=== PATIENT | female | born 1995 | race Caucasian/White ===

== ENCOUNTER 2023-11-30 18:36 | Day surgery (SDC) | payer BC, SELFPAY ==
[2023-11-30] VITALS (14 sets, daily range): BP systolic 99–122; BP diastolic 59–79; BMI 26.9
[2023-11-30 12:56] LABS: % Basophils 0.6 % (0-2); % Eosinophils 1.7 % (0-6); % Immature Granulocytes 0.2 % (0-0.5); % Lymphocytes 17.5 % (20.5-51.1); % Monocytes 6.6 % (1.7-9.3); % Neutrophils 73.4 % (42.2-75.2); Absolute Basophils 0.1 10^3/uL (0-0.2); Absolute Eosinophils 0.1 10^3/uL (0-0.7); Absolute Lymphocytes 1.5 10^3/uL (1.2-3.4); Absolute Monocytes 0.6 10^3/uL (0.1-0.6); Absolute Neutrophils 6.2 10^3/uL (1.4-6.5); Hemoglobin 12.7 g/dL (12.0-16.0); Mean Corp Hgb Conc. 34.3 g/dL (33.0-37.0); Mean Corpuscular Hgb 29.1 pg (27.0-31.0); Mean Corpuscular Volume 84.9 fL (81.0-99.0); Mean Platelet Volume 9.7 fL (7.4-10.4); Nucleated Red Blood Cells % 0 %; Platelet Count 283 10^3/uL (130-400); Red Blood Cell Count 4.36 10^6/uL (4.20-5.40); Red Cell Dist. Width 13.1 % (11.5-14.5); White Blood Cell Count 8.5 10^3/uL (4.8-10.8)
[2023-11-30 13:02] LABS: HCG, Serum Qualitative Screen Negative
[2023-11-30 13:10] LABS: ALT (SGPT) 15 U/L (0-35); AST (SGOT) 22 U/L (14-36); Albumin 4.7 g/dl (3.5-5.0); Alkaline Phosphatase 58 U/L (38-126); Blood Urea Nitrogen 15 mg/dl (7-17); Calcium 9.9 mg/dl (8.4-10.2); Carbon Dioxide 26 mmol/L (22-30); Chloride 104 mmol/L (98-107); Glucose 100 mg/dl (70-99); Lipase 96 U/L (23-300); Potassium 4.1 mmol/L (3.5-5.1); Sodium 137 mmol/L (135-145); Total Bilirubin 0.8 mg/dl (0.2-1.3); eGFR > 60.00
[2023-11-30 14:29] LABS: Urine Albumin Negative (Neg - Trace); Urine Bilirubin Negative (Negative); Urine Character Clear (Clear); Urine Color Yellow; Urine Glucose Negative (Negative); Urine Ketone Negative (Negative); Urine Leukocyte Negative (Negative); Urine Nitrite Negative (Negative); Urine Occult Blood 2+ (Negative); Urine Specific Gravity 1.015 (<1.030); Urine Urobilinogen Negative (Neg - 1+)
[2023-11-30] MEDS: OMNIPAQUE 50 ML PO (14:32)
--- NOTE | 2023-11-30 14:47 | ED.GENMED ---
History of Present Illness
General
Chief Complaint: Abdominal Pain
Source: patient
Exam Limitations: none
Time Seen by Provider: 11/30/23 13:58
Nursing documentation reviewed up to this point in time: agreed with
History of Present Illness
History of Present Illness:
28-year-old female presenting to the emergency department today with concerns of abdominal cramping worsening over the past 3 days specific right lower quadrant abdominal pain worsening since yesterday associated nausea no vomiting no changes in
bowel movements no vaginal symptoms. Denies any history of surgeries to the abdomen
Review of Systems
Review of Systems
Allergies reviewed?: Yes
All Other Systems: ROS reviewed and negative except as documented in HPI and ROS
Phy Exam
Physical Exam
Physical Exam:
GENERAL: Alert , in no apparent distress
EYE: pupils equal and reactive
NECK: Supple, no significant adenopathy.
ENT: o/p clr, mmm.
CARDIAC: Regular rate and rhythm .
LUNGS: Clear breath sounds bilaterally, no acute respiratory distress, no wheezes/rales/rhonchi
ABDOMEN: Pain to right lower quadrant McBurney's point otherwise soft benign abdomen. Nonperitoneal
NEUROLOGICAL: Alert and oriented, no focal neuro deficits
SKIN: Warm and dry, skin intact.
MUSCULOSKELETAL: No edema, well perfused.
PSYCH: Normal and appropriate interaction.
Course
Orders/Labs/Results
Orders:
Orders
11/30/23 12:37
Test Result ONCE
11/30/23 12:39
Complete Blood Count/With Diff Urgent
Comprehensive Metabolic Panel Urgent
HCG, Serum Qualitative Screen Urgent
Comment: Notify provider if positive test present
Lipase Urgent
11/30/23 14:19
Urinalysis Reflex To Culture Urgent
Date Specimen was Collected: 11/30/23
Time Specimen was Collected: 14:15
Urine Microscopic Reflex Cult Urgent
11/30/23 14:22
CT Abd/pel W Iv And Oral Contr Urgent
Comment:
Reason For Exam: rlq pain
0.9% Sodium Chloride 1000 ml [Nss] 1,000 ml IV BOLUS
Iohexol [Omnipaque] See Protocol PO NOW STA
Ketorolac [Toradol] 15 mg IV NOW STA
Ondansetron Injectable [Zofran] 4 mg IV NOW STA
11/30/23 17:36
CefTRIAXone [Rocephin] 1,000 mg IV NOW STA
MetroNIDAZOLE 500 MG/100 ML [Flagyl 500 mg] 100 ml IV NOW
11/30/23 17:56
Dexamethasone Sod Phosphate [Decadron] 20 mg .ROUTE .STK-MED ONE
Fentanyl Citrate/Pf [Sublimaze] 100 mcg .ROUTE .STK-MED ONE
Lidocaine 2% Mpf [Xylocaine Mpf 2%] 100 mg .ROUTE .STK-MED ONE
Midazolam HCl [Versed] 2 mg .ROUTE .STK-MED ONE
Ondansetron Injectable [Zofran] 4 mg .ROUTE .STK-MED ONE
Propofol [Diprivan] 20 ml .ROUTE .STK-MED
11/30/23 18:08
Bupivacaine 0.25%Pf/Epinephrin [Sensorcaine-Epi 0.25%-0.0005] 30 ml .ROUTE .STK-MED ONE
11/30/23 18:12
HYDROmorphone [Dilaudid] 0.25 mg IV PACU-Q5MPRN PRN
HYDROmorphone [Dilaudid] 0.5 mg IV PACU-Q5MPRN PRN
Meperidine [Demerol] 12.5 mg IV PACU-Q5MPRN PRN
Ondansetron Injectable [Zofran] 4 mg IV PACU-ONCEPRN PRN
Prochlorperazine [Compazine] 5 mg IV PACU-ONCEPRN PRN
Notify MD As Directed
Notify physician if: for SDS patients with known or suspected sleep obstructive sleep apnea, monitor in the
PACU.
Notify MD for any apneic/desaturation episodes
O2 Therapy [RESP] Urgent
Titrate/Wean O2 to maintain O2 sat greater than (%): 92
Special Instructions: -Provide supplemental oxygen to achieve O2 sat of 92% or greater.
-After 15 min, may wean O2 and discontinue if patient is able to maintain O2 sat of 92%
or greater during recovery period.
If patient is a discharge home, without oxygen therapy, notify anestheiologist if
unable to maintain O2 SAT of 92% or greater on room air for MD clearance.
11/30/23 18:15
MetroNIDAZOLE 500 MG/100 ML [Flagyl 500 mg] 100 ml .ROUTE .STK-MED
Normosol (Mult Electrolytes) [Normosol-R] 1,000 ml IV PER PROTOCOL
Abnormal Lab Results
11/30/23 11/30/23
12:39 14:19
Lymphocytes % 17.5 L %
(20.5-51.1)
Glucose 100 H mg/dl
(70-99)
Ur Occult Blood Reflex 2+ A
(Negative)
Urine RBC 3-6 A /HPF
(0-2)
Urine Bacteria (Reflex) Few A
(Negative)
11/30/23 12:39
11/30/23 12:39
Vital Signs
Initial and Last Documented VS:
Initial Vital Signs
Temp Pulse Resp BP Pulse Ox
98.1 F 69 16 114/79 98
11/30/23 12:34 11/30/23 12:34 11/30/23 12:34 11/30/23 12:34 11/30/23 12:34
Last Documented Vital Signs
Temp Pulse Resp BP Pulse Ox
98.1 F 60 18 102/73 100
11/30/23 12:34 11/30/23 14:00 11/30/23 14:00 11/30/23 16:00 11/30/23 16:15
MDM/Problems Addressed
MDM/Problems Addressed:
28-year-old female presenting to the emergency department today with concerns of right lower quadrant abdominal pain worsening over the past few days associated nausea with no vomiting. Normal vital signs upon arrival labs unremarkable. Plan for
CT scan for further assessment. Appendicitis seen without complication on the CT scan. Case discussed with general surgery they will take her directly to the OR. Stable throughout ER stay.
*Critical Care Note
Total Time (30-74mins, 75-104mins- exclusive of procedures): Not Applicable
ED Attending Note
-
Portions of this chart may have been created with voice recognition software.� Occasional wrong word or��sound alike� substitutions may have occurred due to the inherent limitations of voice recognition software.
Discharge Plan
Departure
Patient Disposition: Admit
Date of Disposition: 11/30/23
Time of Disposition: 18:33
Admit to: OR
Admit to doctor: Hannah
Presentation/result/management discussed w/ accepting MD/DO: Gen Surgery
Patient with high blood pressure during this ER visit?: No
Condition: Good
Covid-19: Not Applicable
Discharge Problem:
Acute appendicitis
Prescriptions:
No Action
No Current Medications
0
Referrals:
PRIVATE,PHYSICIAN [Family Provider] -
Interventions
Interventions:
*Risk Screen - Suicide Last Done: 11/30/23 14:50
*General Assessment Last Done: 11/30/23 12:34
*Neglect/Abuse Screening Last Done: 11/30/23 14:50
ED- Fall Risk Assessment Last Done: 11/30/23 14:45
*ED COVID-19 Vaccine History Last Done: 11/30/23 12:34
ZV-Fsrros-Hwqenluauy Assessment Last Done: 11/30/23 14:45
Discharge Date and Time
Print Language: BRAZILIAN
[2023-11-30 14:49] LABS: Urine Mucus Few
[2023-11-30] MEDS: TORADOL 15 MG IV (14:49)
[2023-11-30] MEDS: ZOFRAN 4 MG IV (14:49)
[2023-11-30] MEDS: NSS 1000 IV ×2 (14:50→20:11)
[2023-11-30 14:52] LABS: Urine Bacteria Few (Negative); Urine White Cell 0-2 /HPF (0-5)
[2023-11-30] MEDS: ROCEPHIN 1000 MG IV (17:51)
[2023-11-30] MEDS: FLAGYL 500 MG 100 IV (17:51)
--- NOTE | 2023-11-30 19:33 | HP.FOC2 ---
Focused History & Physical
Chief Complaint
HPI:
Chief Complaint: Right lower quadrant pain
HPI / Indication for Planned Procedure: Patient is a 28-year-old female who was in her baseline state of health until about 48 hours ago when she began developing abdominal discomfort which increased her pain over the last evening and began
localizing to the right lower quadrant. Anorexia and nausea but no vomiting. She has had loose bowels recently but no melena or hematochezia. No similar episodes of pain like this in the past.
Relevant Past Medical History: Negative (Patient denies any active or significant past medical history)
Relevant Social History: Negative
Relevant Family History: Positive for (Father recently from cardiac arrest unexpectedly)
Relevant Past Surgical History: Negative
Review of Systems
Review of Pertinent Systems: All Systems Negative
Medication
See Medication form for detailed medications: Yes
Medication List (including Herbals & OTC):
No Meds [No Current Medications] 11/30/23
Medications Reviewed: Yes
Allergies and Reactions
Patient has Allergies: No
Noted Allergies and Reactions:
Allergy/AdvReac Type Severity Reaction Status Date / Time
Penicillins Allergy Hives Verified 11/30/23 12:36
Pertinent Physical Exam
All Other Systems: Negative
Head/Neck: Normal
Lungs: Normal
Heart: Normal
Abdomen: Other (Soft, nondistended, tenderness to palpation localized to the right lower quadrant with some voluntary guarding on deep palpation. No rebound)
Extremities: Normal
Neurological: Normal
Diagnosis / Assessment
Assessment: 28-year-old female presenting with acute appendicitis.
Reviewed with patient history, examination and CT imaging consistent with acute appendicitis. Discussed both operative and nonoperative management options and associated risks/benefits of approaches. Patient is in agreement to proceed with
appendectomy.
Laparoscopic appendectomy reviewed in detail with the patient. Discussed operative technique utilizing diagrams or drawings, alternative management options, benefits and potential risks such as but not limited to bleeding, infectious or wound
healing complications, iatrogenic injury to surrounding viscera. Discussed the typical postoperative recovery pending operative findings.
Any of the patient's concerns or questions were fully addressed and informed consent was obtained.
Plan: OR for laparoscopic appendectomy.
Empiric antibiotic coverage with Rocephin and Flagyl started in emergency department.
Nothing by mouth, IV fluid hydration and supportive care awaiting operative room availability.
Plan / Procedure
Laparoscopic appendectomy
Anesthesia/Sedation to be done by Anesthesia Provider: Yes
--- NOTE | 2023-11-30 19:35 | W.SUR.PREOP ---
Pre-Operative Surgical Note
-
I have examined this patient prior to the performance of the scheduled procedure.
The patient's condition is unchanged from the time of the current History and
Physical and the patient is able to undergo the scheduled procedure.
--- NOTE | 2023-11-30 19:35 | W.IMMPOSTOP ---
Addendum entered and electronically signed by Wesley Young MD 11/30/23 19:40:
#[id number]
Original Note:
Surgical Immed Post Op Note
-
Primary Surgeon: Hannah
Assisting Surgeon: None
Pre-op Diagnosis: Acute appendicitis
Post-op Diagnosis: Acute appendicitis
Procedure Performed: Laparoscopic appendectomy
Anesthesia Type: GETA +0.25% Marcaine with epi
Specimen / Cultures: Appendix/none
Estimated Blood Loss: 4 mL
Complications: None immediate
Operative Findings: Distended, dilated appendix with surrounding free fluid. Acute uncomplicated appendicitis. No perforation, no abscess, no disruption of appendix with appendectomy. No additional notable intra-abdominal findings.
[2023-11-30] MEDS: DEMEROL 12.5 MG IV (19:45)
--- NOTE | 2023-11-30 23:20 | PTCARENOTE ---
Pt arrived from PACU at aprox 2044 to room 2117. Pt vitals stable. NSS running at 110/hr. Pt with 3 lap sites to jannie [facility]. Admission and assessment completed. Pt tolerating ice chips. Pain controlled at this time. Instructed pt to ring for
assistance to bathroom.
[2023-12-01 03:09] VITALS: BP 112/62
[2023-12-01 07:38] VITALS: BP 116/59
--- NOTE | 2023-12-01 07:52 | W.PN.GS2 ---
Today's Communication / Plan
-
Start diet
Discharge today.
Assessment / Plan
-
Patient is a 28-year-old female postoperative day 1 s/p laparoscopic appendectomy, initially presented with sudden onset of right lower quadrant abdominal pain and CT findings consistent with acute appendicitis
- Start regular diet
- Discontinue fluids
- As needed medications for pain
- d/c home today
- Follow-up in outpatient in 2 to 3 weeks.
Time Spent
Total Time Spent with Patient (in minutes): 20
Subjective Data
-
Date of Service: December 01, 2023
Some discomfort/pain in the incision region. No nausea/vomiting. Able to pass flatus
Objective Data
-
Intake and Output
11/30/23 12/01/23 12/02/23
06:59 06:59 06:59
Intake Total 820 / 820
Balance 820 / 820
Intake:
Oral fluids 120 / 120
IV fluids (Total) 700 / 700
Normosol 300 / 300
Other:
Number of approximated SMALL 1
amounts of urine
Number of approximated MODERATE 2
amounts of urine
Number of approximated LARGE 1
amounts of urine
Vital Signs
Temp Pulse Resp BP Pulse Ox
98.4 F 64 17 116/59 98
12/01/23 07:38 12/01/23 07:38 12/01/23 07:38 12/01/23 07:38 12/01/23 07:38
Lab Results
11/30/23 12:39
11/30/23 12:39
Calcium 9.9 mg/dl (8.4-10.2) 11/30/23 12:39
Total Bilirubin 0.8 mg/dl (0.2-1.3) 11/30/23 12:39
AST 22 U/L (14-36) 11/30/23 12:39
ALT 15 U/L (0-35) 11/30/23 12:39
Alkaline Phosphatase 58 U/L (38-126) 11/30/23 12:39
Total Protein 7.0 g/dl (6.3-8.2) 11/30/23 12:39
Albumin 4.7 g/dl (3.5-5.0) 11/30/23 12:39
Physical Exam
-
General: Well-developed, no apparent distress
Abdomen: Nondistended, mild tenderness near the incision sites, overall incisions clean, dry, intact.
[2023-12-01] MEDS: MOTRIN 400 MG PO (08:16)
[2023-12-01] MEDS: NSS IV (08:31)
--- NOTE | 2023-12-01 10:45 | CM ---
Patient discharged this am and left building prior to CM visiting and completing initial assessment. Patient was Outpatient status. MD did not identify any needs at discharge.
== END 2023-12-01 09:57 | disposition home or self-care (01) ==
LOC: SDS 18:36
PROVIDERS: Emergency Medicine; ATTENDING PHYSICIAN Surgery; EMERGENCY PHYSICIAN Emergency Medicine
DX: K35.890 Other acute appendicitis without perforation or gangrene (principal)
CPT/HCPCS: 44970; 88304; 74177; 80053; 81003; 81015; 83690; 84703; 85025; 96365; 96375; 99285; C1776; Q9967